=== PATIENT | female | born 1960 | race Caucasian/White ===

== ENCOUNTER → 2021-02-23 | Outpatient (CLI) | payer OTHER ==
[~2021-02-23] MED LIST: TYLENOL WITH C1 EACH PO; ZANTAC150 MG PO
== END ==
LOC: CT 07:36
PROVIDERS: ATTEND Family Medicine
DX: R07.81 Pleurodynia (principal); M79.672 Pain in left foot; F43.21 Adjustment disorder with depressed mood
CPT/HCPCS: 71250